=== PATIENT | male | born 1965 | race Caucasian/White ===

== ENCOUNTER 2020-06-25 11:46 | Emergency (ER) | payer OTHER ==
[~2020-06-25] VITALS: Ht 180.3 cm; Wt 86.2 kg
[~2020-06-25 11:46] MED LIST: BACTRIM DS TAB1 EACH PO; CLEOCIN HCL150 MG PO; K-DUR 20 MEQ T20 MEQ PO; LISINOPRIL20 MG PO; LUNESTA3 MG PO; MUPIROCIN22 GM; NORCO 5-325 TA1 EACH PO; OMEPRAZOLE40 MG PO
[2020-06-25 12:45] LABS: ABSOLUTE NEUTROPHILS 5.6 thou/uL (1.4-8.2); BASOPHILS 1.4 % (0.0-2.0); EOSINOPHILS 2.5 % (0.0-3.0); HEMATOCRIT 40.3 % (42.0-52.0); HEMOGLOBIN 13.8 gm/dL (14.0-18.0); LYMPHOCYTES 10.2 % (24.0-44.0); MCH 32.4 pg (26.0-34.0); MCHC 34.1 g/dL (28.0-37.0); MCV 95.1 fL (80.0-100.0); MONOCYTES 5.6 % (1.0-8.0); PLATELET COUNT 237 thou/uL (150-400); POLYS 80.3 % (36.0-66.0); RBC 4.24 mil/uL (4.50-6.00); RDW 14.6 % (10.5-14.5); WBC 6.9 thou/uL (4.0-11.0)
[2020-06-25 12:51] LABS: ANION GAP 10 mmol/L (7-16); BUN 13 mg/dL (7-18); CALCIUM 8.8 mg/dL (8.5-10.1); CHLORIDE 99 mmol/L (98-107); CO2 25 mmol/L (21-32); GLUCOSE 130 mg/dL (74-106); POTASSIUM 4.2 mmol/L (3.5-5.1); SODIUM 134 mmol/L (136-145)
[2020-06-25 13:01] LABS: ALBUMIN 3.2 g/dL (3.4-5.0); SGOT 33 U/L (15-37); SGPT 33 U/L (16-63); TOTAL BILIRUBIN 0.7 mg/dL (0.2-1.0); TOTAL PROTEIN 7.6 g/dL (6.4-8.2); TROPONIN-I <0.06 ng/mL (<0.06)
[2020-06-25] MEDS ORDERED: NORCO 10-325 T1 EACH PO (14:21)
[2020-06-25 14:29] VITALS: BP 146/111
--- NOTE | 2020-06-25 17:37 | EKG ---
[place] [address] [facility] [email or web address] [address] ELECTROCARDIOGRAM REPORT Name: SHARMAINENATASHA VALLADARES Stoney Room #: [facility]#: [id number] Admission: 06/25/20 Attend Phys: Discharge: 06/25/20 Date of : 69 Report #: [id number] ED Test Date: 2020-06-25 Test Time: 11:56:13 Pat Name: NATASHA GONZALEZ Department: Room: Gender: Supply Chain Generalist: JESSICA : 1965 Requested By: Lizzie Brower Order Number: [id number] MD: Clayton Montenegro Measurements Intervals [place] Rate: 117 P: 73 [place]: 147 QRS: 66 QRSD: 82 T: 57 QT: 307 QTc: 429 Interpretive Statements Sinus tachycardia LAE, consider biatrial enlargement Baseline wander in lead(s) III No previous ECG available for comparison Electronically Signed On 06-25-2020 17:37:49 CDT by Clayton Montenegro [email or web address] <ELECTRONICALLY SIGNED> By: Clayton Montenegro MD, [facility] 06/25/20 1737 [id number] 1156 Clayton Montenegro MD, FACC /EPI
== END 2020-06-25 14:37 | disposition home or self-care (01) ==
LOC: ER 11:46
PROVIDERS: Physician Assistant
DX: R07.81 Pleurodynia (principal); M51.25 Other intervertebral disc displacement, thoracolumbar region; R10.9 Unspecified abdominal pain; F17.210 Nicotine dependence, cigarettes, uncomplicated; Z79.899 Other long term (current) drug therapy; W10.9XXA Fall (on) (from) unspecified stairs and steps, initial encounter; Y93.89 Activity, other specified; Y92.89 Other specified places as the place of occurrence of the external cause; Y99.8 Other external cause status

== ENCOUNTER 2020-07-02 06:54 | Emergency (ER) | payer OTHER ==
[~2020-07-02] VITALS: Ht 180.3 cm; Wt 86.2 kg
[~2020-07-02 06:54] MED LIST changes: +NORCO 10-325 T1 EACH PO
[2020-07-02] MEDS ORDERED: CHILDREN'S ASPI81 M1 PO (07:16)
[2020-07-02 07:22] LABS: ABSOLUTE NEUTROPHILS 3.1 thou/uL (1.4-8.2); BASOPHILS 0.6 % (0.0-2.0); HEMATOCRIT 43.5 % (42.0-52.0); HEMOGLOBIN 14.6 gm/dL (14.0-18.0); LYMPHOCYTES 15.2 % (24.0-44.0); MCH 31.5 pg (26.0-34.0); MCHC 33.5 g/dL (28.0-37.0); MONOCYTES 8.6 % (1.0-8.0); PLATELET COUNT 194 thou/uL (150-400); POLYS 72.6 % (36.0-66.0); RBC 4.63 mil/uL (4.50-6.00); RDW 14.5 % (10.5-14.5); WBC 4.3 thou/uL (4.0-11.0)
[2020-07-02 07:33] LABS: CALCIUM 9.1 mg/dL (8.5-10.1); POTASSIUM 3.4 mmol/L (3.5-5.1)
[2020-07-02 09:25] VITALS: BP 158/108
== END 2020-07-02 09:32 | disposition home or self-care (01) ==
LOC: ER 06:54
PROVIDERS: Emergency Medicine
DX: E87.6 Hypokalemia (principal); M79.10 Myalgia, unspecified site; F17.210 Nicotine dependence, cigarettes, uncomplicated; Z79.82 Long term (current) use of aspirin; Z79.899 Other long term (current) drug therapy